=== PATIENT | male | born 1980 | race Caucasian/White ===

== ENCOUNTER 2017-11-01 09:19 | Emergency (ER) | payer OTHER ==
[~2017-11-01] VITALS: Ht 182.9 cm; Wt 77.2 kg
[2017-11-01 09:26] VITALS: BP 138/93
[2017-11-01] MEDS ORDERED: PERM60CR19 TP (09:46)
== END 2017-11-01 09:59 | disposition home or self-care (01) ==
LOC: ER 09:21
DX: R21 Rash and other nonspecific skin eruption (principal); Z20.7 Contact with and (suspected) exposure to pediculosis, acariasis and other infestations
CPT/HCPCS: 99282

== ENCOUNTER → 2017-11-09 | Emergency (ER) | payer OTHER ==
[~2017-11-09] VITALS: Ht 182.9 cm; Wt 77.3 kg
[~2017-11-09] MED LIST: Ivermectin 3mg tablet PO SCH; PERM60CR19 TP; PRED50TA PO
[2017-11-09 13:01] VITALS: BP 120/74
== END | disposition home or self-care (01) ==
LOC: ER 12:56
DX: R21 Rash and other nonspecific skin eruption (principal); Z79.899 Other long term (current) drug therapy
CPT/HCPCS: 99283

== ENCOUNTER 2018-07-17 09:20 | Outpatient (CLI) | payer BC ==
[~2018-07-17 09:20] MED LIST changes: -Ivermectin 3mg tablet PO SCH; -PERM60CR19 TP
[2018-07-17 10:21] LABS: BASOPHILS % (AUTO) 0.8 % (0-1); EOSINOPHILS # (AUTO) 0.2 X10'3 (0-0.9); EOSINOPHILS % (AUTO) 4.3 % (0-6); HEMATOCRIT 44.5 % (42.0-52.0); HEMOGLOBIN 15.2 g/dl (14.0-17.9); LYMPHOCYTES # (AUTO) 1.9 X10'3 (1.1-4.8); LYMPHOCYTES % (AUTO) 36.4 % (21-51); MEAN CORPUSCULAR HEMOGLOBIN 30.3 PG (27.0-31.0); MEAN CORPUSCULAR HGB CONC 34.2 g/dL (33.0-36.5); MEAN CORPUSCULAR VOLUME 88.7 FL (78-98); MONOCYTES # (AUTO) 0.5 X10'3 (0-0.9); MONOCYTES % (AUTO) 8.9 % (2-12); NEUTROPHILS # (AUTO) 2.6 X10'3 (1.8-7.7); NEUTROPHILS % (AUTO) 49.6 % (42-75); PLATELET COUNT 193 X10'3 (140-440); RED BLOOD COUNT 5.02 X10'6 (4.70-6.10); RED CELL DISTRIBUTION WIDTH 12.7 % (11.5-14.5); WHITE BLOOD COUNT 5.3 X10'3 (4.5-11.0)
[2018-07-17 10:36] LABS: ALANINE AMINOTRANSFERASE 29 U/L (12-78); ALBUMIN 3.7 G/DL (3.4-5.0); ALBUMIN/GLOBULIN RATIO 1.2 (1.1-1.5); ALKALINE PHOSPHATASE 49 IU/L (46-116); ANION GAP 5 (8-16); ASPARTATE AMINO TRANSFERASE 18 U/L (10-37); BILIRUBIN,TOTAL 0.5 MG/DL (0.1-1.0); BLOOD UREA NITROGEN 12 MG/DL (7-18); BUN/CREATININE RATIO 9.4 (5.4-32.0); CALCIUM 8.8 MG/DL (8.5-10.1); CHLORIDE 107 MMOL/L (99-107); CREATININE 1.27 MG/DL (0.60-1.10); GLUCOSE 87 MG/DL (70-104); POTASSIUM 3.6 MMOL/L (3.5-5.1); SODIUM 142 MMOL/L (135-145); TOTAL CARBON DIOXIDE 30.3 MMOL/L (24-32); TOTAL PROTEIN 6.8 G/DL (6.4-8.2); eGFR 64 ML/MIN
[2018-07-18 17:01] LABS: CLARITY,URINE CLEAR (Clear); COLOR,URINE YELLOW (Yellow); GLUCOSE, URINE NEGATIVE (Neg); KETONES,URINE NEGATIVE (Neg); LEUKOCYTE ESTERASE ,URINE NEGATIVE (Neg); NITRITES, URINE NEGATIVE (Neg); OCCULT BLOOD,URINE NEGATIVE (Neg); PROTEIN,URINE NEGATIVE (Neg); UROBILINOGEN,URINE 0.2 E.U/dL (0.2-1.0)
[2018-07-18 17:02] LABS: UA COLLECTION TYPE VOIDED
== END 2018-07-17 23:59 | disposition home or self-care (01) ==
LOC: LAB 09:20
PROVIDERS: ATTEND Family Medicine
DX: R07.9 Chest pain, unspecified (principal); R10.9 Unspecified abdominal pain; K92.1 Melena; E03.9 Hypothyroidism, unspecified
CPT/HCPCS: 36415; 80053; 81003; 83520; 84439; 84443; 85025

== ENCOUNTER 2019-01-28 03:52 | Emergency (ER) | payer BC, OTHER ==
[~2019-01-28] VITALS: Ht 182.9 cm; Wt 77.3 kg
[2019-01-28] MEDS ORDERED: naproxen 500mg tablet PO ONE (04:35)
[2019-01-28 04:56] VITALS: BP 131/90
== END 2019-01-28 05:10 | disposition home or self-care (01) ==
LOC: ER 03:52
DX: S39.012A Strain of muscle, fascia and tendon of lower back, initial encounter (principal); R07.89 Other chest pain; E03.9 Hypothyroidism, unspecified; Z79.899 Other long term (current) drug therapy; Z91.013 Allergy to seafood; X50.1XXA Overexertion from prolonged static or awkward postures, initial encounter; Y93.89 Activity, other specified; Y92.89 Other specified places as the place of occurrence of the external cause; Y99.9 Unspecified external cause status
CPT/HCPCS: 71046; 93005; 99283

== ENCOUNTER 2019-02-14 09:18 | Day surgery (SDC) | payer OTHER ==
[~2019-02-14] VITALS: Ht 180.3 cm; Wt 77.3 kg
[2019-02-14] MEDS ORDERED: LIDOcaine Viscous 15ml cup ONE (09:29)
[2019-02-14] MEDS ORDERED: fentaNYL/PF 50MCG/1 ML 2ML syringe ONE (09:29)
[2019-02-14] MEDS ORDERED: MIDAZolam 5mg/5ml vial ONE (09:29)
[2019-02-14 09:30] VITALS: BP 116/74
[2019-02-14] MEDS ORDERED: NO HOME MEDS (09:42)
[2019-02-14 10:40] VITALS: BP 109/76
[2019-02-14 10:50] VITALS: BP 121/70
[2019-02-14 11:00] VITALS: BP 111/77
[2019-02-14 11:10] VITALS: BP 119/78
== END 2019-02-14 11:20 | disposition home or self-care (01) ==
LOC: GI LAB 09:18
PROVIDERS: ATTEND Internal Medicine Gastroenterology
DX: R19.7 Diarrhea, unspecified (principal); R10.84 Generalized abdominal pain; R12 Heartburn; K31.89 Other diseases of stomach and duodenum; K29.50 Unspecified chronic gastritis without bleeding
CPT/HCPCS: 43239; 45380; 99152; 99153; A4620; J2250; J3010; J7040

== ENCOUNTER 2019-09-30 14:46 | Emergency (ER) | payer OTHER ==
[~2019-09-30] VITALS: Ht 182.9 cm; Wt 82.8 kg
[~2019-09-30 14:46] MED LIST changes: +NO HOME MEDS; -PRED50TA PO
[2019-09-30] MEDS ORDERED: pantoprazole 40mg Tablet.DR PO ONE (16:40)
[2019-09-30] MEDS ORDERED: famotidine 20mg tablet PO ONE (16:40)
[2019-09-30] MEDS ORDERED: benzonatate 100mg capsule PO ONE (16:40)
[2019-09-30] MEDS ORDERED: PANT20TA3 PO (16:41)
[2019-09-30] MEDS ORDERED: BENZ-16 PO (16:41)
[2019-09-30 17:31] VITALS: BP 129/85
== END 2019-09-30 17:21 | disposition home or self-care (01) ==
LOC: ER 14:47 → EEVIPCON 14:47 → ER 17:21
DX: R05 Cough (principal); Z20.828 Contact with and (suspected) exposure to other viral communicable diseases; E03.9 Hypothyroidism, unspecified; Z79.899 Other long term (current) drug therapy
CPT/HCPCS: 36415; 71045; 99284